=== PATIENT | male | born 1980 | race Caucasian/White ===

== ENCOUNTER 2019-10-31 11:17 | Emergency (ER) | payer SELFPAY ==
[~2019-10-31] VITALS: Ht 172.7 cm; Wt 101.2 kg
--- NOTE | 2019-10-31 11:25 | NUR ---
CAME IN FOR LEFT FOOT PAIN, HOMELESS, TO ER BED 11, REFUSED TO BE CONNECTED TO BP CUFF AND POX, REFUSED TO BE CHANGED INTO HOSP GOWN, WILL KEEP PATIENT COMFORTABLE IN BED.
--- NOTE | 2019-10-31 12:01 | NUR ---
INFANT TEACHER DEGRASSE AT BEDSIDE
[2019-10-31 12:21] LABS: BASOPHILS # (AUTO) 0.1 /CMM (0.0-0.2); BASOPHILS % (AUTO) 0.3 % (0.0-2.0); EOSINOPHILS % (AUTO) 0.2 % (0.0-6.0); HEMATOCRIT 38 % (39-51); HEMOGLOBIN 12.6 g/dL (13.5-17.5); LYMPHOCYTES # (AUTO) 1.1 /CMM (0.8-4.8); LYMPHOCYTES % (AUTO) 6.4 % (20.0-44.0); MEAN CORPUSCULAR HGB CONC 33 g/dl (31.0-36.0); MEAN CORPUSCULAR VOLUME 88 fL (80-96); MONOCYTES # (AUTO) 1.3 /CMM (0.1-1.30); MONOCYTES % (AUTO) 8.1 % (2.0-12.0); PLATELET COUNT (AUTO) 274 /CMM (150-450); RED BLOOD CELL COUNT(AUTO) 4.27 MIL/uL (4.5-6.0); WHITE BLOOD COUNT (AUTO) 16.4 K/uL (4.3-11.0)
[2019-10-31] MEDS ORDERED: OLANZAPINE 5 MG TABLET PO ONE (12:30)
[2019-10-31] MEDS ORDERED: LORAZEPAM 1 MG TABLET PO ONE (12:30)
[2019-10-31] MEDS ORDERED: OLANZAPINE 5 MG TABLET ONE (12:54)
[2019-10-31] MEDS ORDERED: LORAZEPAM 1 MG TABLET ONE (12:54)
[2019-10-31 12:58] LABS: CALCIUM, SERUM 8.7 mg/dL (8.5-10.1); CARBON DIOXIDE 26 mmol/L (21-32); CHLORIDE 103 mmol/L (98-107); CREATININE 0.9 mg/dL (0.6-1.3); GLUCOSE 103 mg/dL (74-106); POTASSIUM 3.6 mmol/L (3.5-5.1); SODIUM SERUM 137 mmol/L (136-145); UREA NITROGEN, BLOOD 17 mg/dL (7-18)
[2019-10-31 13:04] LABS: ALANINE AMINOTRANSFERASE 36 U/L (12-78); ALBUMIN 3.2 g/dL (3.4-5.0); ALCOHOL, BLOOD < 3 mg/dL (0-0); ALKALINE PHOSPHATASE 84 U/L (46-116); ASPARTATE AMINOTRANSFERASE 25 U/L (15-37); BILIRUBIN,DIRECT 0.1 mg/dL (0.0-0.2); BILIRUBIN,TOTAL 0.6 mg/dL (0.2-1.0); SALICYLATE 0.3 mg/dL (2.8-20.0); TOTAL PROTEIN, SERUM 6.4 g/dL (6.4-8.2)
[2019-10-31 13:05] LABS: ACETAMINOPHEN < 2 ug/ml (10-30)
[2019-10-31 13:06] VITALS: BP 124/76
--- NOTE | 2019-10-31 13:19 | NUR ---
PATIENT NOT ABLE TO PROVIDE URINE SAMPLE AT THIS TIME, DIGITAL INTERN DEGRASSE AWARE
--- NOTE | 2019-10-31 14:05 | NUR ---
PATIENT REFUSES TO PROVIDE URINE AND BE CHANGED INTO HOSP GOWN. PRODUCT TECHNICIAN DEGRASSE AWARE
--- NOTE | 2019-10-31 16:07 | NUR ---
PATIENT IN BED SLEEPING, SNORING. WILL KEEP COMFORTABLE AND SAFE.
--- NOTE | 2019-10-31 18:19 | NUR ---
PATIENT IN BED SLEEPING, TUCKED IN BLANKET, EASILY AROUSABLE BY VOICE. WILL CONTINUE TO MONITOR
--- NOTE | 2019-10-31 19:13 | NUR ---
REPORT GIVEN TO SALEEM BARRAZA FOR [facility]
--- NOTE | 2019-10-31 19:13 | NUR ---
REPORT RECEIVED FROM CHRISTI WHELAN FOR [facility]
--- NOTE | 2019-10-31 19:19 | NUR ---
Carlos rhodes in ED - 10/31/19 at 2001 by TRACY PT REFUSED ASSESSMENT AND VSS.
--- NOTE | 2019-10-31 19:20 | NUR ---
PT REFUSED TO BE ASSESSED.
--- NOTE | 2019-10-31 19:35 | NUR ---
PT IS REFUSING VITAL SIGNS ASSESSMENT.
--- NOTE | 2019-10-31 20:01 | NUR ---
PT APPEARS TO BE COMFORTABLE. EASILY AROUSABLE. NO ACUTE DISTRESS NOTED.
--- NOTE | 2019-10-31 20:31 | NUR ---
ULTRASOUND IN PROGRESS
[2019-10-31 20:41] LABS: APPEARANCE,URINE CLEAR (CLEAR); BILIRUBIN,URINE NEGATIVE (NEGATIVE); BLOOD, URINE NEGATIVE Ery/uL (NEGATIVE); COLOR,URINE YELLOW (YELLOW); KETONES,URINE NEGATIVE (NEGATIVE); LEUKOCYTE ESTERASE ,URINE NEGATIVE (NEGATIVE); NITRITE, URINE NEGATIVE (NEGATIVE); PROTEIN,URINE NEGATIVE (NEGATIVE); UGLUCOSE NEGATIVE (NEGATIVE); UROBILINOGEN,URINE 0.2 EU/dL (0.2)
--- NOTE | 2019-10-31 21:35 | NUR ---
PT IS REFUSING VITAL SIGNS ASSESSMENT
[2019-10-31] MEDS ORDERED: CEFTRIAXONE 1 G VIAL IM ONE (22:00)
[2019-10-31] MEDS ORDERED: LIDOCAINE 1% INJ 50 ML MDV IJ ONE (22:01)
[2019-10-31] MEDS ORDERED: CEFTRIAXONE 1 G VIAL ONE (22:02)
--- NOTE | 2019-10-31 22:11 | NUR ---
PT REFUSED ROCEPHIN 1 G IM. SAND MIXER DEGRASSE MADE AWARE
--- NOTE | 2019-10-31 22:26 | NUR ---
PT RESTING COMFORTABLY. NO ACUTE DISTRESS NOTED. EASILY AROUSED.
--- NOTE | 2019-10-31 22:30 | NUR ---
PT IS REFUSING VITAL SIGNS ASSESSMENT
--- NOTE | 2019-11-01 00:01 | NUR ---
PT RESTING COMFORTABLY. NO ACUTE DISTRESS NOTED. EASILY AROUSED
--- NOTE | 2019-11-01 00:58 | NUR ---
PT RESTING IN BED. EASILY AROUSABLE. AAOX4. CALLED MUNICIPAL ENGINEER CHRISTI WHITE FOR EVALUATION. NO ANSWER. WILL FOLLOW UP.
--- NOTE | 2019-11-01 01:00 | NUR ---
PT IS REFUSING VITAL SIGNS ASSESSMENT
--- NOTE | 2019-11-01 02:34 | NUR ---
PT IS REFUSING VITAL SIGNS ASSESSMENT
--- NOTE | 2019-11-01 05:16 | NUR ---
SPOKE WITH JEWELRY SETTER CHRISTI WHITE FOR EVALUATION
--- NOTE | 2019-11-01 05:16 | NUR ---
PT RESTING COMFORTABLY. NO ACUTE DISTRESS NOTED. EASILY AROUSED
--- NOTE | 2019-11-01 05:20 | NUR ---
PT IS REFUSING VITAL SIGNS ASSESSMENT
--- NOTE | 2019-11-01 05:45 | NUR ---
PT AMBULATED TO THE RESTROOM
--- NOTE | 2019-11-01 06:08 | NUR ---
CHRISTI WHITE AT BEDSIDE FOR EVALUATION
== END 2019-11-01 07:14 | disposition home or self-care (01) ==
LOC: ER 11:20
DX: L03.116 Cellulitis of left lower limb (principal); F29 Unspecified psychosis not due to a substance or known physiological condition; Z59.0 Homelessness
CPT/HCPCS: 36415; 71045; 73630; 80048; 80076; 80305; 80307; 80329; 81001; 85025; 93971; 99285; G0480; J0696; J3490; 81000-TC